=== PATIENT | male | born 1970 | race Caucasian/White ===

== ENCOUNTER → 2025-01-07 10:25 | Outpatient (REF) | payer BC, SELFPAY ==
[2025-01-07 12:00] LABS: % Eosinophils 1.7 % (0-6); % Immature Granulocytes 0.2 % (0-0.5); % Lymphocytes 32.6 % (20.5-51.1); % Monocytes 6.8 % (1.7-9.3); % Neutrophils 57.7 % (42.2-75.2); Absolute Basophils 0.1 10^3/uL (0-0.2); Absolute Eosinophils 0.1 10^3/uL (0-0.7); Absolute Lymphocytes 2.1 10^3/uL (1.2-3.4); Absolute Monocytes 0.4 10^3/uL (0.1-0.6); Absolute Neutrophils 3.6 10^3/uL (1.4-6.5); Hematocrit 46.7 % (39.0-52.0); Hemoglobin 16.1 g/dL (13.0-18.0); Mean Corp Hgb Conc. 34.5 g/dL (33.0-37.0); Mean Platelet Volume 9.4 fL (7.4-10.4); Nucleated Red Blood Cells % 0 % (-); Platelet Count 230 10^3/uL (130-400); Red Blood Cell Count 5.37 10^6/uL (4.70-6.10); White Blood Cell Count 6.3 10^3/uL (4.8-10.8)
[2025-01-07 13:56] LABS: Blood Urea Nitrogen 14 mg/dl (9-20); Calcium 9.8 mg/dl (8.4-10.2); Carbon Dioxide 27 mmol/L (22-30); Chloride 106 mmol/L (98-107); Glucose 140 mg/dl (70-99); Potassium 5.3 mmol/L (3.5-5.1); Sodium 142 mmol/L (135-145); eGFR > 60.00
== END ==
LOC: RAD 10:25
PROVIDERS: ATTENDING PHYSICIAN Specialist; FAMILY PHYSICIAN Nurse Practitioner
DX: Z01.818 Encounter for other preprocedural examination (principal)
CPT/HCPCS: 36415; 80048; 85025; 93005

== ENCOUNTER 2025-02-15 06:11 | Day surgery (SDC) | payer BC, SELFPAY ==
[2025-02-15] VITALS (12 sets, daily range): BP systolic 99–132; BP diastolic 65–96; BMI 27.0
[2025-02-15 08:38] LABS: Glucose - Point of Care 160 mg/dl (70-99)
[2025-02-15] MEDS: TYLENOL 1000 MG PO (08:41)
[2025-02-15] MEDS: CELEBREX 200 MG PO (08:41)
[2025-02-15] MEDS: NORMOSOL-R/PLASMALYTE-A 1000 IV (08:56)
[2025-02-15 10:45] LABS: Glucose - Point of Care 167 mg/dl (70-99)
== END 2025-02-15 13:18 | disposition home or self-care (01) ==
LOC: SDS 06:11
PROVIDERS: ATTENDING PHYSICIAN Specialist
DX: M75.101 Unspecified rotator cuff tear or rupture of right shoulder, not specified as traumatic (principal); M75.41 Impingement syndrome of right shoulder
CPT/HCPCS: 29827; 29823; 82962; 93005